=== PATIENT | male | born 1995 | race Two or more races ===

== ENCOUNTER 2023-08-17 15:19 | Emergency (ER) | payer OTHER ==
[~2023-08-17] VITALS: Ht 170.2 cm; Wt 92.1 kg
[2023-08-17] MEDS: KETOROLAC TROMETH 30 MG/ML 1ML VIAL IV ONE (17:22)
[2023-08-17 18:10] VITALS: PULSE 80; RESP 16; O2SAT 98
[2023-08-17 19:56] VITALS: PULSE 78; RESP 16; O2SAT 98
[2023-08-17] MEDS: fentaNYL CITRATE 100 MCG/2 ML VL IV ONE (20:48)
[2023-08-17 23:20] VITALS: BP 123/70; PULSE 83; RESP 16; TEMP 98.2; O2SAT 100
== END 2023-08-17 23:43 | disposition short-term general hospital (02) ==
LOC: ER 15:19
DX: S42.102A Fracture of unspecified part of scapula, left shoulder, initial encounter for closed fracture (principal); S22.42XA Multiple fractures of ribs, left side, initial encounter for closed fracture; S27.329A Contusion of lung, unspecified, initial encounter; J94.2 Hemothorax; V28.49XA Other motorcycle driver injured in noncollision transport accident in traffic accident, initial encounter; Y93.89 Activity, other specified; Y92.410 Unspecified street and highway as the place of occurrence of the external cause; Y99.8 Other external cause status
CPT/HCPCS: 71250; 73030; 96374; 96375; 99285; J1885; J3010